=== PATIENT | female | born 1970 | race Caucasian/White ===

== ENCOUNTER 2020-05-19 16:14 | Outpatient (REF) | payer MEDICARE, MEDICAID, SELFPAY ==
[2020-05-19 16:44] LABS: MANUAL DIFF FLAG NO
[2020-05-19 16:55] LABS: Basophils Percent Auto 0.6 % (0-2); Eosinophils Absolute Auto 0.2 X10*3/uL (0.0-0.4); Eosinophils Percent Auto 2.5 % (0-4); Hematocrit 27.2 % (37-47); Imm Gran Abs Auto 0.03 X10*3/uL (0.00-0.03); Imm Gran Pct Auto 0.4 % (0.0-0.4); Lymphocytes Absolute Auto 2.4 X10*3/uL (1.2-4.9); Lymphocytes Percent Auto 34.8 % (20-40); Mean Corpuscular HGB Conc 33.1 g/dl (31.0-35.0); Mean Corpuscular Hemoglobin 33.8 pg (27.0-33.0); Mean Corpuscular Volume 102.3 fL (80-98); Mean Platelet Volume 10.1 fL (9.4-12.3); Monocytes Absolute Auto 0.3 X10*3/uL (0.1-1.2); Monocytes Percent Auto 3.8 % (2-11); Neutrophils Percent Auto 57.9 % (45-73); Platelet Count 223 X10*3/uL (160-400); Red Blood Count 2.66 X10*6/uL (4.20-5.50); Red Cell Distribution Width 13.2 % (11.0-16.0); White Blood Count 6.9 X10*3/uL (4.8-10.8)
[2020-05-19 17:30] LABS: Alanine Aminotransferase 18 U/L (0-31); Albumin Level 3.5 g/dL (3.5-5.0); Alkaline Phosphatase 77 U/L (39-117); Aspartate Amino Transferase 28 U/L (5-31); Bilirubin Total 0.2 mg/dL (0.0-1.0); Blood Urea Nitrogen 12 mg/dL (9-16); Calcium 8.8 mg/dL (8.4-10.2); Cholesterol 200 mg/dL; Estimated Glomerular Filt Rate 30; Glucose Random 79 mg/dL (60-115); HDL Cholesterol 57 mg/dL; LDL Cholesterol Calculated 76 mg/dl; Total Protein 5.8 g/dL (6.5-8.0); Triglycerides 336 mg/dL
[2020-05-19 18:46] LABS: Anion Gap 12 (12-20); Carbon Dioxide 40 mmol/L (22-29); Chloride 94 mmol/L (96-108); Potassium 3.4 mmol/l (3.3-5.1); Sodium 143 mmol/L (135-145)
[2020-05-19 19:36] LABS: Reflex LDLD? No
[2020-05-19 20:42] LABS: Thyroid Stimulating Hormone > 100.00 uIU/mL (0.32-4.0)
== END 2020-05-19 16:15 | disposition home or self-care (01) ==
LOC: HO.LAB 16:14
PROVIDERS: PCP Internal Medicine; Visit Provider Internal Medicine
DX: Z00.00 Encounter for general adult medical examination without abnormal findings (principal); E03.9 Hypothyroidism, unspecified; F32.9 Major depressive disorder, single episode, unspecified
CPT/HCPCS: 36415; 80053; 80061; 84443; 85025

== ENCOUNTER 2020-05-26 13:38 | Inpatient (IN) | payer MEDICARE, MEDICAID, SELFPAY ==
[2020-05-26] VITALS (7 sets, daily range): BP systolic 102–140; BP diastolic 60–74; PULSE 75–98; RESP 16–19; TEMP 36.4–36.9; O2SAT 98–100; BMI 18.8
--- NOTE | 2020-05-26 14:36 | ED_ITS ---
HPI - Recheck/Abnormal Lab/Rx General Chief Complaint: General Medical Stated Complaint: abnormal labs Time Seen by Provider: 05/26/20 14:33 Source: patient and old records reviewed Mode of arrival: ambulatory Limitations: no limitations History of Present Illness HPI narrative: 49 yo female s/p thyroidectomy for thyroid cancer was on synthroid but then took herself off and did internet raw thyroid - she resumed her 125mcg of synthroid on Friday at this time she was referred to the ED to come for abnormal thyroid labs and renal failure she has been c/o low back pain as well. MD complaint: abnormal lab Initial visit (ago): week(s) (05/19) Related Data Home Medications Medication Instructions Recorded Confirmed clonazepam 1 mg PO TID 05/26/20 05/26/20 levothyroxine [Synthroid] 125 mcg PO DAILY 05/26/20 05/26/20 quetiapine 200 mg PO BEDTIME 05/26/20 05/26/20 zolpidem 5 mg PO BEDTIME 05/26/20 05/26/20 Allergies Allergy/AdvReac Type Severity Reaction Status Date / Time No Known Allergies Allergy Unknown UNKNOWN Verified 05/26/20 14:40 [NO KNOWN ALLERGIES] Review of Systems Review of Systems: Constitutional : No Weight loss, No Fever, No Chills,pos fatigue and pos myalgias ENT/Mouth : No Hearing loss, No Ear Pain, No Nasal Congestion, No Sinus Pain, No Hoarseness, No sore throat, No Rhinorrhea, No Swallowing Difficulty Cardiovascular : No Chest Pain, No SOB, positive edema Respiratory : No Cough, No Dyspnea Gastrointestinal : No Nausea, No Vomiting, No Diarrhea, No abdominal Pain, No Hematochezia, No Melena Genitourinary : No Dysuria, No Urinary Frequency, No Hematuria, No Urinary Incontinence, Musculoskeletal : positive back pain Skin : No Skin Lesions, No rash Neuro : No Weakness, No Numbness, No Paresthesias, no loss of bowel or bladder incontinence, no saddle anesthesia PMFSH Past Medical History Attestation statement: The following information was validated with the patient. Medical History (Updated 05/26/20 @ 16:31 by Caterina Garcia DO) Anxiety Cholecystectomy planned Drug abuse Hypothyroidism Thyroid cancer Surgical History (Updated 05/26/20 @ 14:55 by Caterina Garcia DO) H/O thyroidectomy History of laparotomy Social History Social History (Updated 05/26/20 @ 14:55 by Caterina Garcia DO) Smoking Status: Current every day smoker Use of substances other than those prescribed or required for medical reasons: No Advance Directives: Yes Advance Directives Information Provided: Yes Advance Directives on File: No Physical Exam Vital Signs: Vital Signs: Last Vital Signs Temp 98.5 F 05/26/20 16:16 Pulse 77 05/26/20 16:16 Resp 16 05/26/20 16:16 BP 102/72 05/26/20 16:16 Pulse Ox 98 05/26/20 16:16 Body Mass Index 18.8 Appearance: Alert. Oriented X3. No acute distress. Eyes: Pupils equal, round and reactive to light. ENT: Pharynx normal. Neck: Normal inspection. Neck supple. CVS: Normal heart rate and rhythm. Pulses normal. Respiratory: No respiratory distress. Breath sounds normal. Abdomen: Soft and nontender. Back: bilateral lower back pain Skin: Skin warm and dry. Normal skin color. Very dry and flaking skin Extremities: Nonpitting bilateral mild lower extremity edema. No calf ttp Neuro: Oriented X 3. No motor deficit. No sensory deficit. MDM - Recheck/Abnormal Lab/Rx MDM Narrative Medical decision making narrative: 49 yo female with 1+ month of not feeling well - here with HR in 80s, low back pain for 1 month with no b/b incontinence, no saddle anesthesia, also TSH > 100 but back on synthroid 125mcg, no signs of myxedema coma, she is more concerned about receiving pain medications it seems than about her possible renal and thyroid dysfunction, will repeat labs, CT scan for renal colic, UA, dispo per results and findings Lab Data Result diagrams: 05/26/20 15:11 05/26/20 15:12 Labs: Lab Results 05/26/20 05/26/20 05/26/20 Range/Units 15:11 15:12 15:12 WBC 7.1 (4.8-10.8) X10*3/uL RBC 3.31 L D (4.20-5.50) X10*6/uL Hgb 11.1 L D (12.0-16.0) g/dl Hct 34.1 L D (37-47) % MCV 103.0 H (80-98) fL MCH 33.5 H (27.0-33.0) pg MCHC 32.6 (31.0-35.0) g/dl RDW 13.1 (11.0-16.0) % Plt Count 275 (160-400) X10*3/uL MPV 9.7 (9.4-12.3) fL Immature Gran % (Auto) 0.4 (0.0-0.4) % Neut % (Auto) 61.5 (45-73) % Lymph % (Auto) 32.4 (20-40) % [place] % (Auto) 3.7 (2-11) % Eos % (Auto) 1.3 (0-4) % Baso % (Auto) 0.7 (0-2) % Lymph # (Auto) 2.3 (1.2-4.9) X10*3/uL [place] # (Auto) 0.3 (0.1-1.2) X10*3/uL Eos # (Auto) 0.1 (0.0-0.4) X10*3/uL Baso # (Auto) 0.1 (0.0-0.2) X10*3/uL Abs Immat Gran (auto) 0.03 (0.00-0.03) X10*3/uL Absolute Neuts (auto) 4.3 (2.0-8.3) X10*3/uL Absolute Nucleated RBC 0.000 (0.0-0.012) X10*3/uL Nucleated RBC % (auto) 0.0 (0.0-0.2) /100WBC APTT (24.1-38.0) SEC Sodium 142 (135-145) mmol/L Potassium 4.1 D (3.3-5.1) mmol/l Chloride 102 (96-108) mmol/L Carbon Dioxide 28 (22-29) mmol/L Anion Gap 16 (12-20) BUN 9 (9-16) mg/dL Creatinine 1.79 H (0.5-1.4) mg/dL Estim Creat Clear Calc 30.3 Estimated GFR 30 Random Glucose 75 (60-115) mg/dL Calcium 8.6 (8.4-10.2) mg/dL Magnesium 1.6 (1.6-2.6) mg/dL Total Bilirubin 0.4 (0.0-1.0) mg/dL Direct Bilirubin 0.2 (0.0-0.5) mg/dL AST 31 (5-31) U/L ALT 16 (0-31) U/L Alkaline Phosphatase 111 D (39-117) U/L B-Natriuretic Peptide 94 (<100) pg/mL Total Protein 7.1 D (6.5-8.0) g/dL Albumin 4.1 (3.5-5.0) g/dL Lipase 16 (8-78) U/L TSH (0.32-4.0) uIU/mL Free T4 0.60 L (0.71-1.85) ng/dL Urine Color Urine Appearance Urine pH (5.0-8.0) Ur Specific [place] (1.005-1.025) Urine Protein (NEG-TRACE) MG/DL Urine Glucose (UA) (NEG) MG/DL Urine Ketones (NEG) MG/DL Urine Blood (NEG) Urine Nitrite (NEG) Ur Leukocyte Esterase (NEG) Urine RBC (0) /HPF Urine WBC (0-4) /HPF Ur Squamous Epith Cells /LPF Urine Bacteria /LPF 05/26/20 05/26/20 05/26/20 Range/Units 15:12 15:12 15:12 WBC (4.8-10.8) X10*3/uL RBC (4.20-5.50) X10*6/uL Hgb (12.0-16.0) g/dl Hct (37-47) % MCV (80-98) fL MCH (27.0-33.0) pg MCHC (31.0-35.0) g/dl RDW (11.0-16.0) % Plt Count (160-400) X10*3/uL MPV (9.4-12.3) fL Immature Gran % (Auto) (0.0-0.4) % Neut % (Auto) (45-73) % Lymph % (Auto) (20-40) % [place] % (Auto) (2-11) % Eos % (Auto) (0-4) % Baso % (Auto) (0-2) % Lymph # (Auto) (1.2-4.9) X10*3/uL [place] # (Auto) (0.1-1.2) X10*3/uL Eos # (Auto) (0.0-0.4) X10*3/uL Baso # (Auto) (0.0-0.2) X10*3/uL Abs Immat Gran (auto) (0.00-0.03) X10*3/uL Absolute Neuts (auto) (2.0-8.3) X10*3/uL Absolute Nucleated RBC (0.0-0.012) X10*3/uL Nucleated RBC % (auto) (0.0-0.2) /100WBC APTT 44.3 H (24.1-38.0) SEC Sodium (135-145) mmol/L Potassium (3.3-5.1) mmol/l Chloride (96-108) mmol/L Carbon Dioxide (22-29) mmol/L Anion Gap (12-20) BUN (9-16) mg/dL Creatinine (0.5-1.4) mg/dL Estim Creat Clear Calc Estimated GFR Random Glucose (60-115) mg/dL Calcium (8.4-10.2) mg/dL Magnesium (1.6-2.6) mg/dL Total Bilirubin (0.0-1.0) mg/dL Direct Bilirubin (0.0-0.5) mg/dL AST (5-31) U/L ALT (0-31) U/L Alkaline Phosphatase (39-117) U/L B-Natriuretic Peptide (<100) pg/mL Total Protein (6.5-8.0) g/dL Albumin (3.5-5.0) g/dL Lipase (8-78) U/L TSH > 100.00 H (0.32-4.0) uIU/mL Free T4 (0.71-1.85) ng/dL Urine Color YELLOW Urine Appearance HAZY Urine pH 7.5 (5.0-8.0) Ur Specific [place] 1.010 (1.005-1.025) Urine Protein NEG (NEG-TRACE) MG/DL Urine Glucose (UA) NEG (NEG) MG/DL Urine Ketones NEG (NEG) MG/DL Urine Blood TRACE (NEG) Urine Nitrite NEG (NEG) Ur Leukocyte Esterase NEG (NEG) Urine RBC 1-4 (0) /HPF Urine WBC 1-4 (0-4) /HPF Ur Squamous Epith Cells 2+ /LPF Urine Bacteria 1+ /LPF ECG Data Attestation: I personally reviewed and interpreted this ECG as follows: ECG interpretation date: 05/26/20 ECG interpretation time: 16:29 Interpretation: Rate: 75 Rhythm: NSR [place]: normal Normal P waves. Normal ALANNA. decreased QRS complex. ST T wave : normal qTC: normal prior studies: no acute ischemia The study has been interpreted contemporaneously by me. . Discharge Plan Discharge Clinical Impression: LAURYN (acute kidney injury), Hypothyroid, Non-compliance, Back pain Patient Disposition: Admitted As Inpatient Prescriptions: No Action quetiapine 200 mg Tablet 200 mg PO BEDTIME RF: 0 clonazepam 1 mg Tablet 1 mg PO TID RF: 0 levothyroxine [Synthroid] 125 mcg Tablet 125 mcg PO DAILY RF: 0 zolpidem 5 mg Tablet 5 mg PO BEDTIME RF: 0
--- NOTE | 2020-05-26 14:48 | ECG_ITS ---
Test Reason : BACK PAIN Blood Pressure : / mmHG Vent. Rate : 075 BPM Atrial Rate : 075 BPM P-R Int : 178 ms QRS Dur : 114 ms QT Int : 404 ms P-R-T Axes : 075 086 078 degrees QTc Int : 451 ms Normal sinus rhythm Low voltage QRS RSR' or QR pattern in V1 suggests right ventricular conduction delay Borderline ECG When compared with ECG of 03-SEP-2019 05:10, No significant change was found Referred By: Caterina Garcia Electronically Signed By:RAMIRO FREIRE MD
--- NOTE | 2020-05-26 14:48 | CT_ITS ---
EXAMINATION: CT ABDOMEN AND PELVIS WITHOUT CONTRAST CLINICAL INFORMATION: Back pain. Renal failure. Anemia. COMPARISON: 12/09/2013 TECHNIQUE: Multidetector volumetric imaging was performed from the superior aspect of the liver through the pubic symphysis. Sagittal and coronal reformatted images were obtained on the technologist's workstation. This CT examination was performed using dose optimization techniques as appropriate, variously including the following: *Automated exposure control *Adjustment of mA and/or kV according to patient size (this includes techniques or standardized protocols for targeted exams where dose is matched to indication/reason for exam; i.e. extremities or head) *Use of iterative reconstruction technique DLP: 334 mGy-cm FINDINGS: LUNG BASES: Small pericardial effusion. Mild centrilobular emphysema. Pleural thickening at the left base. LIVER, GALLBLADDER, AND BILIARY TREE: The liver is normal in size, shape, and attenuation. No focal hepatic lesion or biliary ductal dilatation is present. Cholecystectomy. PANCREAS: Unremarkable. SPLEEN: Unremarkable. ADRENAL GLANDS: Unremarkable. KIDNEYS AND URETERS: The kidneys are normal in size, shape, and attenuation. No hydronephrosis or hydroureter. There is a right upper pole calculus which measures 0.5 cm, 7 cm from the posterior axillary line. 0.2 cm right lower pole calculus noted. No additional calculi are seen. BLADDER: Unremarkable. GASTROINTESTINAL TRACT: The stomach is unremarkable. Normal caliber small bowel. There is no obstruction. The colon is diffusely fluid-filled, with stool at the rectum. Partial colectomy with right upper quadrant enterocolic anastomosis. No free air or free fluid. ABDOMINAL WALL: No significant hernia is appreciated. LYMPH NODES: Normal. VASCULAR: Unremarkable. PELVIC VISCERA: The uterus and adnexa are unremarkable. OSSEOUS STRUCTURES: No acute or suspicious osseous abnormality. CT/CT abdomen pelvis wo con IMPRESSION: Right upper pole nonobstructing renal calculus. Tiny right lower pole calculus as well. No hydronephrosis. Fluid and prominent stool throughout much of the colon. Partial right colectomy with right upper quadrant enterocolic anastomosis.
[2020-05-26] MEDS: Lidocaine 4 % Patch ADH..PATCH 1 PATCH TRANSDERMA (15:19)
[2020-05-26] MEDS: Acetaminophen 325 MG TABLET 650 MG PO (15:19)
[2020-05-26] MEDS: diazePAM 5 MG TABLET PO (15:20)
[2020-05-26] MEDS: ondansetron HCL 4 MG/2 ML VIAL IVPUSH (15:20)
[2020-05-26 15:21] LABS: Basophils Absolute Auto 0.1 X10*3/uL (0.0-0.2); Basophils Percent Auto 0.7 % (0-2); Eosinophils Absolute Auto 0.1 X10*3/uL (0.0-0.4); Eosinophils Percent Auto 1.3 % (0-4); Hematocrit 34.1 % (37-47); Hemoglobin 11.1 g/dl (12.0-16.0); Imm Gran Abs Auto 0.03 X10*3/uL (0.00-0.03); Imm Gran Pct Auto 0.4 % (0.0-0.4); Lymphocytes Absolute Auto 2.3 X10*3/uL (1.2-4.9); Lymphocytes Percent Auto 32.4 % (20-40); MANUAL DIFF FLAG NO; Mean Corpuscular HGB Conc 32.6 g/dl (31.0-35.0); Mean Corpuscular Hemoglobin 33.5 pg (27.0-33.0); Mean Platelet Volume 9.7 fL (9.4-12.3); Monocytes Absolute Auto 0.3 X10*3/uL (0.1-1.2); Monocytes Percent Auto 3.7 % (2-11); Neutrophils Absolute Auto 4.3 X10*3/uL (2.0-8.3); Neutrophils Percent Auto 61.5 % (45-73); Platelet Count 275 X10*3/uL (160-400); Red Blood Count 3.31 X10*6/uL (4.20-5.50); Red Cell Distribution Width 13.1 % (11.0-16.0); White Blood Count 7.1 X10*3/uL (4.8-10.8)
[2020-05-26 15:29] LABS: Partial Thromboplastin Time 44.3 SEC (24.1-38.0)
[2020-05-26 15:34] LABS: Glucose Urine UA NEG (NEG); Leukocyte Esterase Urine NEG (NEG); Nitrite Urine NEG (NEG); PH 7.5 (5.0-8.0); Urine Blood TRACE (NEG); Urine Ketones NEG (NEG); Urine Protein NEG (NEG-TRACE)
[2020-05-26 15:38] LABS: Appearance Urine HAZY; Color Urine YELLOW
[2020-05-26 15:45] LABS: Bacteria Urine 1+ /LPF; Squamous Epithelial Cell Urine 2+ /LPF
[2020-05-26 15:52] LABS: Alanine Aminotransferase 16 U/L (0-31); Albumin Level 4.1 g/dL (3.5-5.0); Alkaline Phosphatase 111 U/L (39-117); Anion Gap 16 (12-20); Aspartate Amino Transferase 31 U/L (5-31); Bilirubin Direct 0.2 mg/dL (0.0-0.5); Bilirubin Total 0.4 mg/dL (0.0-1.0); Blood Urea Nitrogen 9 mg/dL (9-16); Calcium 8.6 mg/dL (8.4-10.2); Carbon Dioxide 28 mmol/L (22-29); Chloride 102 mmol/L (96-108); Creatinine Clr Calc Pharmacy 30.3; Estimated Glomerular Filt Rate 30; Glucose Random 75 mg/dL (60-115); Lipase 16 U/L (8-78); Magnesium 1.6 mg/dL (1.6-2.6); Potassium 4.1 mmol/l (3.3-5.1); Sodium 142 mmol/L (135-145); Total Protein 7.1 g/dL (6.5-8.0)
[2020-05-26 15:54] LABS: B Type Natriuretic Peptide 94 pg/mL (<100)
--- NOTE | 2020-05-26 16:02 | PC.NURSE ---
pt returned from ct scan
[2020-05-26 16:15] LABS: Thyroid Stimulating Hormone > 100.00 uIU/mL (0.32-4.0)
[2020-05-26] MEDS: 0.9 % Sodium Chloride 1,000 ML 999 ML IVCONT (16:41)
--- NOTE | 2020-05-26 16:50 | P.HPHOSP_ITS ---
History of Present Illness Date of Service: 05/26/20 Chief Complaint: Multiple complaint--abdominal pain, dry skin 49 year female with history of thyroid cancer s/p total thyroidectomy 9 years ago and on replacement levothyroxine which stpped taking about six [address] of some natural supplement. She has not been feeling for weeks with symptoms ranging from feeling tired, weak and had notted her skin to be very dry and has been having generalized pain particular in her lower back and has been taking alot of Motrin at home for this. She recently was started back on synthroid about 5 days ago. She had lab work done today which showed TSH > 100 and Free T4 of 0.6. She also says that she had been recently treated for UTI and denies urinary symptoms. CT of abdomen and pelvis show no acute process. Review of Systems Review of Systems: Gen: no fever Resp: no sob, no cough CV: no chest, no [place], no leg edema GI: No n/v, no abd pain Neuro: No confusion [place]: back pain Psych: normal affect Skin: dry no itchyness Endo: no polyurrea or polydipsia Yes all other systems are reviewed and are negative [facility] Medical History (Updated 05/26/20 @ 17:08 by Griffin Jackson MD) Anxiety Cholecystectomy planned Drug abuse History of small bowel obstruction Hypothyroidism Thyroid cancer Functional capacity: independent ambulation Family history: reviewed and not pertinent Surgical History (Updated 05/26/20 @ 17:08 by Griffin Jackson MD) H/O resection of small bowel H/O thyroidectomy History of laparotomy Social History Smoking Status: Current every day smoker Use of substances other than those prescribed or required for medical reasons: No Advance Directives: Yes Advance Directives Information Provided: Yes Advance Directives on File: No Meds Allergies Allergy/AdvReac Type Severity Reaction Status Date / Time No Known Allergies Allergy Unknown UNKNOWN Verified 05/26/20 14:40 [NO KNOWN ALLERGIES] Home Medications Medication Instructions Recorded Confirmed Type clonazepam 1 mg PO TID 05/26/20 05/26/20 History levothyroxine [Synthroid] 125 mcg PO DAILY 05/26/20 05/26/20 History quetiapine 200 mg PO BEDTIME 05/26/20 05/26/20 History zolpidem 5 mg PO BEDTIME 05/26/20 05/26/20 History Physical Exam Vital Signs and Narrative: Vital Signs: Last Vital Signs Temp 98.5 F 05/26/20 16:16 Pulse 77 05/26/20 16:16 Resp 16 05/26/20 16:16 BP 102/72 05/26/20 16:16 Pulse Ox 98 05/26/20 16:16 Body Mass Index 18.8 Appearance: Alert. Oriented X3. No acute distress. Eyes: Pupils equal, round and reactive to light. ENT: Pharynx normal. Neck: Normal inspection. Neck supple. CVS: Normal heart rate and rhythm. Pulses normal. Respiratory: No respiratory distress. Breath sounds normal. Abdomen: Soft and nontender. Back: bilateral lower back pain Skin: Skin warm and dry. Normal skin color. Very dry and flaking skin, nail clubbing Extremities: Nonpitting bilateral mild lower extremity edema. No calf ttp Neuro: Oriented X 3. No motor deficit. No sensory deficit. Results Labs CBC and Chem 7: 05/26/20 15:11 05/26/20 15:12 Labs: TSH > 100, Free T4 0.6, UA is normal Imaging Radiologist's Impressions: Impressions Abdomen/Pelvis CT 05/26/20 14:48 IMPRESSION: Right upper pole nonobstructing renal calculus. Tiny right lower pole calculus as well. No hydronephrosis. Fluid and prominent stool throughout much of the colon. Partial right colectomy with right upper quadrant enterocolic anastomosis. Assessment and Plan (1) LAURYN (acute kidney injury): Status: Acute (2) Hypothyroid: Qualifiers: Hypothyroidism type: unspecified Qualified Code(s): E03.9 - Hypothyroidism, unspecified Status: Acute (3) Back pain: Qualifiers: Back pain laterality: bilateral Back pain location: low back pain Chronicity: acute Sciatica presence: without sciatica Qualified Code(s): M54.5 - Low back pain Status: Acute 49 year female with history of thyroidectomy and now hypothyroidism and non compliant here with back pain, mild LAURYN 1. LAURYN--mild, likely from dehydration and possibly taking too many Motrin -Hydrate and repeat Labs and if not improving renal consult, avoid NSAID 2. Back pain--no neuro symptoms, possibly related to constipation. Pain med, treat constpation 3. Hypothyroidism--d/t non-compliance. No myxedema symptoms. Continue thyroid replacement with TSH 4. Consitipation d/t hypothyroidism--Bowel regimen 5. history of Opioid contract failure--cautious with pain meds. DVT prophylaxis with
--- NOTE | 2020-05-26 17:00 | PC.NURSE ---
called up to [facility] to give report, awaiting call back
[2020-05-26 17:50] LABS: COVID-19 Test Negative (Negative); IDNOW Serial# 9DD0AD1C
[2020-05-26] MEDS: Morphine Sulfate 2 MG/ML CARTRIDGE IVPUSH ×2 (18:15→22:21)
--- NOTE | 2020-05-26 19:00 | PC.NURSE ---
PT C/O ONGOING LOWER BACK PAIN. MEDICATED WITH PRN MEDICATION FROM TRANSFER ORDERS. STILL WIATING FOR CALL TO GIVE REPORT. DAUGHTER UPDATED WITH PATIENTS CONSENT.
[2020-05-26] MEDS: QUEtiapine Fumarate 200 MG TABLET PO (21:30)
[2020-05-26] MEDS: Zolpidem Tartrate 5 MG TABLET PO (21:30)
[2020-05-26] MEDS: clonazePAM 1 MG TABLET PO (21:30)
[2020-05-26] MEDS: Enoxaparin Sodium 40 MG/0.4 ML SYRINGE SUBCUT (21:30)
[2020-05-26] MEDS: Dextrose 5 % and 0.45 % NaCl 1,000 ML 100 ML IVCONT (22:21)
[2020-05-27 04:08] VITALS: BP 120/68; BP 96/50; PULSE 85; RESP 19; TEMP 36.7; O2SAT 97
[2020-05-27] MEDS: Morphine Sulfate 2 MG/ML CARTRIDGE IVPUSH ×4 (04:27→18:10)
[2020-05-27 06:07] VITALS: BMI 23.1
[2020-05-27] MEDS: Levothyroxine Sodium 125 MCG TABLET PO (07:47)
[2020-05-27] MEDS: clonazePAM 1 MG TABLET PO ×3 (07:47→21:31)
[2020-05-27] MEDS: Dextrose 5 % and 0.45 % NaCl 1,000 ML 100 ML IVCONT ×2 (07:49→17:04)
[2020-05-27 07:50] LABS: MANUAL DIFF FLAG NO
[2020-05-27 07:56] LABS: Basophils Absolute Auto 0.1 X10*3/uL (0.0-0.2); Eosinophils Absolute Auto 0.2 X10*3/uL (0.0-0.4); Eosinophils Percent Auto 3.4 % (0-4); Hematocrit 30.6 % (37-47); Hemoglobin 9.9 g/dl (12.0-16.0); Imm Gran Abs Auto 0.03 X10*3/uL (0.00-0.03); Imm Gran Pct Auto 0.6 % (0.0-0.4); Lymphocytes Percent Auto 37.9 % (20-40); Mean Corpuscular HGB Conc 32.4 g/dl (31.0-35.0); Mean Corpuscular Hemoglobin 33.3 pg (27.0-33.0); Mean Platelet Volume 10.4 fL (9.4-12.3); Monocytes Absolute Auto 0.2 X10*3/uL (0.1-1.2); Monocytes Percent Auto 3.1 % (2-11); Neutrophils Absolute Auto 2.8 X10*3/uL (2.0-8.3); Platelet Count 265 X10*3/uL (160-400); Red Blood Count 2.97 X10*6/uL (4.20-5.50); Red Cell Distribution Width 13.2 % (11.0-16.0); White Blood Count 5.2 X10*3/uL (4.8-10.8)
[2020-05-27 08:00] VITALS: BP 108/47; PULSE 92; RESP 18; TEMP 36.2; O2SAT 99
[2020-05-27 08:20] LABS: Anion Gap 12 (12-20); Blood Urea Nitrogen 9 mg/dL (9-16); Calcium 7.4 mg/dL (8.4-10.2); Carbon Dioxide 26 mmol/L (22-29); Chloride 106 mmol/L (96-108); Creatinine Clr Calc Pharmacy 39.9; Estimated Glomerular Filt Rate 37; Glucose Random 96 mg/dL (60-115); Potassium 4.1 mmol/l (3.3-5.1); Sodium 140 mmol/L (135-145)
--- NOTE | 2020-05-27 09:54 | HO.PM.IMPN ---
Subjective Subjective Date of Service: 05/27/20 Interval History: Seen in f/u LAURYN , renal function is better but not within baselin ROS: Gen: no fever Resp: no sob, no cough CV: no chest, no [place], no leg edema GI: No n/v, no abd pain Neuro: No confusion [place] back pain--old Physical Exam Vital Signs: Vital Signs: Last Vital Signs Temp 97.2 F 05/27/20 08:00 Pulse 92 05/27/20 08:00 Resp 18 05/27/20 08:00 BP 108/47 L 05/27/20 08:00 Pulse Ox 99 05/27/20 08:00 Body Mass Index 23.1 Appearance: Alert. Oriented X3. No acute distress. Eyes: Pupils equal, round and reactive to light. ENT: Pharynx normal. Neck: Normal inspection. Neck supple. CVS: Normal heart rate and rhythm. Pulses normal. Respiratory: No respiratory distress. Breath sounds normal. Abdomen: Soft and nontender. Back: bilateral lower back pain Skin: Skin warm and dry. Normal skin color. Very dry and flaking skin, nail clubbing Extremities: Nonpitting bilateral mild lower extremity edema. No calf ttp Neuro: Oriented X 3. No motor deficit. No sensory deficit. Objective Data Current Medications Generic Name Dose Route Start Last Admin Trade Name Freq PRN Reason Stop Dose Admin Clonazepam 1 mg 05/26/20 21:00 05/27/20 07:47 Clonazepam 1 Mg Tablet PO 1 mg TID FISH Administration Enoxaparin Sodium 40 mg 05/26/20 22:00 05/26/20 21:30 Enoxaparin Sodium 40 Mg/0.4 Ml Syringe SUBCUT 40 mg Q24H FISH Administration Dextrose/Sodium Chloride 1,000 mls @ 100 mls/hr 05/26/20 20:20 05/27/20 07:49 D51/2ns IVCONT 100 mls/hr .Q10H FISH Administration Levothyroxine Sodium 125 mcg 05/27/20 09:00 05/27/20 07:47 Levothyroxine Sodium 125 Mcg Tablet PO 125 mcg DAILY FISH Administration Morphine Sulfate 2 mg 05/26/20 16:45 05/27/20 09:11 Morphine Sulfate 2 Mg/Ml Cartridge IVPUSH 2 mg Q4H PRN Administration Pain, Severe (Pain Scale 7-10) Pharmacy Consult 1 each 05/26/20 15:55 Consult Rx Perform Med Rec MISCELLANE ONCE PRN Consult order Quetiapine Fumarate 200 mg 05/26/20 21:00 05/26/20 21:30 Quetiapine Fumarate 200 Mg Tablet PO 200 mg BEDTIME FISH Administration Sodium Chloride 3 ml 05/27/20 00:00 05/27/20 07:48 0.9 % Sodium Chloride Flush 3 Ml Syringe IVFLUSH Not Given QSHIFT FISH Zolpidem Tartrate 5 mg 05/26/20 21:00 05/26/20 21:30 Zolpidem Tartrate 5 Mg Tablet PO 5 mg BEDTIME FISH Administration Labs CBC & Chem 7: 05/27/20 07:08 05/27/20 07:08 Assessment and Plan (1) LAURYN (acute kidney injury): Status: Acute (2) Hypothyroid: Status: Acute (3) Back pain: Status: Acute Assessment and Plan: 49 year female with history of thyroidectomy and now hypothyroidism and non compliant here with back pain, mild LAURYN 1. LAURYN--slight improvment overnight, w -Hydrate and repeat Labs tomorrow, renal consultt, avoid NSAID 2. Back pain--no neuro symptoms, possibly related to constipation. Pain med, treat constpation 3. Hypothyroidism--d/t non-compliance. No myxedema symptoms. Continue thyroid replacement with TSH 4. Consitipation d/t hypothyroidism--Bowel regimen 5. history of Opioid contract failure--cautious with pain meds. DVT prophylaxis with
[2020-05-27 11:43] VITALS: BP 105/62; PULSE 84; RESP 18; TEMP 36.1; O2SAT 100
--- NOTE | 2020-05-27 13:45 | P.CONNP_ITS ---
History of Present Illness Reason for Consult Consult date: 05/27/20 Reason for consult: Acute Kidney Injury Chief Complaint Chief complaint: abnormal labs History of Present Illness Narrative: Ms. Apple Craft is a 49-year-old female with past medical history of thyroid cancer s/p total thyroidectomy who stopped taking her Levothyroxin several weeks ago. She began having significant symptoms of hypothyroidism correclating to her blood work showing TSH >100 and T4 0.6. Otherwise she was found to have LAURYN with a Cr of 1.79ml/dL. The patient tells me that for atleast 2 weeks she was taking 800mg of motrin q3- 6 hours. She didnt realize it was nephrotoxic. Her U/A was bland. Her Cr peaked at 1.79. Cr is improving with IVF. She denies urinary symptoms. Review of Systems Constitutional: Reports anorexia, Denies chills, Reports daytime sleepiness, Denies difficulty sleeping, Denies excessive sweating and Reports fatigue Eyes: Denies exophthalmos Reports Normal hearing present Cardiovascular: Denies chest pain and Denies dyspnea Respiratory: Denies dyspnea Gastrointestinal: Reports constipation Genitourinary: Denies hematuria and Denies urinary urgency Musculoskeletal: Denies arthralgias Reports Normal hearing present and Denies behavioral changes Psychiatric: Denies behavioral changes Endocrine: Denies excessive sweating and Reports fatigue Hematologic/Lymphatic: Denies easy bruising PMFSH Past Medical History Medical History (Updated 05/27/20 @ 14:06 by Shadi Oneill MD) Anxiety Cholecystectomy planned Drug abuse History of small bowel obstruction Hypothyroidism Thyroid cancer Functional capacity: independent ambulation Family History Family history: reviewed and not pertinent Surgical History Surgical History (Updated 05/26/20 @ 17:08 by Griffin Jackson MD) H/O resection of small bowel H/O thyroidectomy History of laparotomy Social History Social History Do you presently have visiting nurse or other home services: No Smoking Status: Current every day smoker Tobacco Type: Cigarette Packs Per Day: 0.5 Cigarettes Per Day: 10.0 Second Hand Smoke Exposure: Yes Use of substances other than those prescribed or required for medical reasons: Unknown Currently Displaying Signs/Symptoms of Drug Intoxication Withdrawal: No Have you been hit, kicked, punched, or otherwise hurt by someone within the past year? If so, by whom?: No Do you feel safe in your current relationship?: Yes Is there a partner from a previous relationship who is making you feel unsafe now?: No Are you made to feel afraid or neglected: No Advance Directives: No Advance Directives Information Provided: Yes Advance Directives on File: No Do you have thoughts of harming others: None Do you have a plan to hurt others: No Plan Recently lost weight without trying: No Meds Allergies Allergy/AdvReac Type Severity Reaction Status Date / Time No Known Allergies Allergy Unknown UNKNOWN Verified 05/26/20 14:40 [NO KNOWN ALLERGIES] Home Medications Medication Instructions Recorded Confirmed Type clonazepam 1 mg PO TID 05/26/20 05/26/20 History levothyroxine [Synthroid] 125 mcg PO DAILY 05/26/20 05/26/20 History quetiapine 200 mg PO BEDTIME 05/26/20 05/26/20 History zolpidem 5 mg PO BEDTIME 05/26/20 05/26/20 History Physical Exam Vital Signs: Last Vital Signs Temp 96.9 F 05/27/20 11:43 Pulse 84 05/27/20 11:43 Resp 18 05/27/20 11:43 BP 105/62 05/27/20 11:43 Pulse Ox 100 05/27/20 11:43 Body Mass Index 23.1 Const Other: poor dentition General: cooperative Resp Other: CTAB Cardio Other: RRR no murmurs. GI Other: NT ND Other: No suprapubic tenderness or fullness. Neuro Cranial nerves: Yes Normal hearing present Extrem Other: No edema. Results Lab Results Result Diagrams: 05/27/20 07:08 05/27/20 07:08 Lab results: Chemistry 05/26/20 05/27/20 15:12 07:08 Sodium 142 140 Potassium 4.1 D 4.1 Carbon Dioxide 28 26 BUN 9 9 Creatinine 1.79 H 1.49 H Calcium 8.6 7.4 L D Hematology 05/26/20 05/27/20 15:11 07:08 WBC 7.1 5.2 Hgb 11.1 L D 9.9 L Plt Count 275 265 Urinalysis 05/26/20 15:12 Urine Color YELLOW Urine Appearance HAZY Urine pH 7.5 Ur Specific [place] 1.010 Urine Protein NEG Urine Glucose (UA) NEG Urine Ketones NEG Urine Blood TRACE Urine Nitrite NEG Ur Leukocyte Esterase NEG Urine RBC 1-4 Urine WBC 1-4 Ur Squamous Epith Cells 2+ Assessment and Plan (1) LAURYN (acute kidney injury): Problem details: Acute kidney injury likely from a pre-renal azotemia and renal hypoperfusion. NSAIDs block the prostaglandin effect on afferent arterial leading to afferent constriction and hypoperfusion of the glomerulus. This ontop of reduced PO intake and hypovolemia caused a significant pre-renal injury. Improving with Volume support. Status: Acute - May be best to switch to an isotonic solution at this point with LR at 125cc/hr. Perhaps avoid D5 / 0.45 for now. - Encourage PO - Treating hypothyroidism will help with her overall condition and state. - I will set up f/u with Renal outpatient. Procedures Abscess I/D Date of Service: 05/27/20
--- NOTE | 2020-05-27 14:39 | MHC.CM.PN ---
PATIENT IS INDEPENDENT WITH HER ADLs NO DME OR [facility] SERVICES IN THE HOME. FAMILY PROVIDES TRANSPORT WHERE NEEDED. IMM 05/27 SIGNED AND A COPY IS IN CHART. CASE MANAGEMENT FOLLOWING FOR ANY DISCHARGE NEEDS. DAUGHTER TO PROVIDE TRANSPORT HOME UPON DISCHARGE
[2020-05-27 15:47] VITALS: BP 120/64; PULSE 88; RESP 18; TEMP 36.2; O2SAT 99
[2020-05-27 18:10] VITALS: RESP 18
[2020-05-27 19:01] VITALS: BP 118/73; PULSE 79; RESP 19; TEMP 36.6; O2SAT 97
[2020-05-27] MEDS: Zolpidem Tartrate 5 MG TABLET PO (21:30)
[2020-05-27] MEDS: QUEtiapine Fumarate 200 MG TABLET PO (21:31)
[2020-05-27] MEDS: Enoxaparin Sodium 40 MG/0.4 ML SYRINGE SUBCUT (21:31)
[2020-05-28] VITALS: BP 116/88; PULSE 91; RESP 20; TEMP 36.2; O2SAT 97
[2020-05-28 00:49] VITALS: RESP 18
[2020-05-28] MEDS: Morphine Sulfate 2 MG/ML CARTRIDGE IVPUSH ×2 (00:49→04:49)
[2020-05-28] MEDS: 0.9 % Sodium Chloride Flush 3 ML SYRINGE IVFLUSH (00:49)
[2020-05-28] MEDS: Dextrose 5 % and 0.45 % NaCl 1,000 ML 100 ML IVCONT (02:42)
[2020-05-28 04:00] VITALS: BP 112/67; PULSE 84; RESP 18; TEMP 36.4
[2020-05-28 04:49] VITALS: RESP 20
[2020-05-28 05:40] VITALS: BMI 22.3
[2020-05-28 08:00] VITALS: BP 101/70; PULSE 78; RESP 20; TEMP 36.9; O2SAT 97
[2020-05-28] MEDS: clonazePAM 1 MG TABLET PO (08:50)
[2020-05-28] MEDS: Levothyroxine Sodium 125 MCG TABLET PO (08:50)
[2020-05-28] MEDS: Acetaminophen 325 MG TABLET 650 MG PO (08:51)
--- NOTE | 2020-05-28 10:22 | P.DS_ITS ---
DS: Providers Provider Date of admission: 05/26/20 16:45 Primary care physician: Mirella Tapia MD Consults: 05/27/20 09:53 Consult to Nephrology Routine Consulting Provider: Dariusz Augustin Reason for consultation: LAURYN Has provider been notified: No DS: Diagnosis Discharge Diagnosis (1) LAURYN (acute kidney injury): Status: Acute Problem details: Acute kidney injury likely from a pre-renal azotemia and renal hypoperfusion. NSAIDs block the prostaglandin effect on afferent arterial leading to afferent constriction and hypoperfusion of the glomerulus. This ontop of reduced PO intake and hypovolemia caused a significant pre-renal injury. Improving with Volume support. DS: Medications Discharge Medications Home Medications: Home Medications Medication Instructions Recorded Confirmed clonazepam 1 mg PO TID 05/26/20 05/26/20 levothyroxine [Synthroid] 125 mcg PO DAILY 05/26/20 05/26/20 quetiapine 200 mg PO BEDTIME 05/26/20 05/26/20 zolpidem 5 mg PO BEDTIME 05/26/20 05/26/20 Previous Rx's Medication Instructions Recorded polyethylene glycol 3350 [Miralax] 17 g PO DAILY #119 g 05/28/20 DS: Summary Hospital Course Hospital Course: history of presenting illness Chief Complaint: Multiple complaint--abdominal pain, dry skin 49 year female with history of thyroid cancer s/p total thyroidectomy 9 years ago and on replacement levothyroxine which stpped taking about six [address] of some natural supplement. She has not been feeling for weeks with symptoms ranging from feeling tired, weak and had notted her skin to be very dry and has been having generalized pain particular in her lower back and has been taking alot of Motrin at home for this. She recently was started back on synthroid about 5 days ago. She had lab work done today which showed TSH > 100 and Free T4 of 0.6. She also says that she had been recently treated for UTI and denies urinary symptoms. CT of abdomen and pelvis show no acute process. hospital course 1. LAURYN- it was felt that patient LAURYN is related to pre renal azotemia and renal hypoperfusion due to use of NSAIDs and decreased by mouth intake patient was treated with IV fluid creatinine trended down from 1.8 to 1.5 patient is clinically doing better drinking fluids she has been strongly advised to avoid NSAIDs aspirin, will repeat BMP next week recommend outpatient follow-up with PCP and Nephrology. 2. Back pain--no neuro symptoms, most likely musculoskeletal pain and due to constipation patient has been recommended to use Tylenol heart back and icy Hot recommended to abstain from NSAIDs. 3. Hypothyroidism--d/t non-compliance. No myxedema symptoms recommended to continue Synthroid and check TSH in 6 weeks. 4. Consitipation d/t hypothyroidism, patient moving bowels has been placed on MiraLax 5. history of Opioid contract failure no narcotics prescribed upon discharge. Time Spent with Patient Time attestation: Total time spent providing and/or coordinating discharge services: Physical Exam Vital Signs: Vital Signs: Last Vital Signs Temp 98.4 F 05/28/20 08:00 Pulse 78 05/28/20 08:00 Resp 20 05/28/20 08:00 BP 101/70 05/28/20 08:00 Pulse Ox 97 05/28/20 08:00 Body Mass Index 22.3 General resting comfortably Neck: Normal inspection. Neck supple. CVS: Normal heart rate and rhythm. Pulses normal. Respiratory: No respiratory distress. Breath sounds normal. Abdomen: Soft and nontender, bowel sounds are audible. Back: no CVA tenderness, no muscle spasm Skin: Skin warm and dry. Normal skin color, dry skin Extremities: Nonpitting bilateral mild lower extremity edema Neuro: Oriented X 3. No motor deficit. No sensory deficit. DS: Data Data Completed and Pending Labs on day of discharge: 05/26/20 14:48 ECG 12 lead EKG Stat EKG Documentation DIRECTED CT abdomen pelvis wo con Stat Morphine Sulfate 4 mg IVPUSH ONCE ONE ondansetron HCL [Zofran] 4 mg IVPUSH ONCE ONE 05/26/20 14:54 Acetaminophen [Tylenol] 650 mg PO ONCE ONE Lidocaine 4 % Patch [Salonpas 4 % Patch] 1 patch TRANSDERMA ONCE ONE diazePAM [Valium] 5 mg PO ONCE ONE 05/26/20 15:11 Complete Blood Count Auto Diff Stat 05/26/20 15:12 B Type Natriuretic Peptide Stat Basic Metabolic Panel Stat Creatine Kinase Total Stat Free T4 (Free Thyroxine) Stat Lipase Stat Liver Panel Stat Magnesium Stat Partial Thromboplastin Time Stat Thyroid Stimulating Hormone Stat 05/26/20 16:30 0.9 % Sodium Chloride [Ns] 1,000 ml IVCONT 999 mls/hr 05/26/20 16:42 Transfer Order Routine 05/26/20 17:10 COVID-19 ID NOW (Veronica) Stat 05/26/20 20:20 Dextrose 5 % and 0.45 % NaCl [D51/2Ns] 1,000 ml IVCONT 100 mls/hr 05/27/20 07:08 Basic Metabolic Panel DAILY@0600 Complete Blood Count Auto Diff DAILY@0600 Laboratory Last Values WBC 5.2 X10*3/uL (4.8-10.8) 05/27/20 07:08 RBC 2.97 X10*6/uL (4.20-5.50) L 05/27/20 07:08 Hgb 9.9 g/dl (12.0-16.0) L 05/27/20 07:08 Hct 30.6 % (37-47) L 05/27/20 07:08 MCV 103.0 fL (80-98) H 05/27/20 07:08 MCH 33.3 pg (27.0-33.0) H 05/27/20 07:08 MCHC 32.4 g/dl (31.0-35.0) 05/27/20 07:08 RDW 13.2 % (11.0-16.0) 05/27/20 07:08 Plt Count 265 X10*3/uL (160-400) 05/27/20 07:08 MPV 10.4 fL (9.4-12.3) 05/27/20 07:08 Immature Gran % (Auto) 0.6 % (0.0-0.4) H 05/27/20 07:08 Neut % (Auto) 54.0 % (45-73) 05/27/20 07:08 Lymph % (Auto) 37.9 % (20-40) 05/27/20 07:08 [place] % (Auto) 3.1 % (2-11) 05/27/20 07:08 Eos % (Auto) 3.4 % (0-4) 05/27/20 07:08 Baso % (Auto) 1.0 % (0-2) 05/27/20 07:08 Lymph # (Auto) 2.0 X10*3/uL (1.2-4.9) 05/27/20 07:08 [place] # (Auto) 0.2 X10*3/uL (0.1-1.2) 05/27/20 07:08 Eos # (Auto) 0.2 X10*3/uL (0.0-0.4) 05/27/20 07:08 Baso # (Auto) 0.1 X10*3/uL (0.0-0.2) 05/27/20 07:08 Abs Immat Gran (auto) 0.03 X10*3/uL (0.00-0.03) 05/27/20 07:08 Absolute Neuts (auto) 2.8 X10*3/uL (2.0-8.3) 05/27/20 07:08 Absolute Nucleated RBC 0.000 X10*3/uL (0.0-0.012) 05/27/20 07:08 Nucleated RBC % (auto) 0.0 /100WBC (0.0-0.2) 05/27/20 07:08 APTT 44.3 SEC (24.1-38.0) H 05/26/20 15:12 Sodium 140 mmol/L (135-145) 05/27/20 07:08 Potassium 4.1 mmol/l (3.3-5.1) 05/27/20 07:08 Chloride 106 mmol/L (96-108) 05/27/20 07:08 Carbon Dioxide 26 mmol/L (22-29) 05/27/20 07:08 Anion Gap 12 (12-20) 05/27/20 07:08 BUN 9 mg/dL (9-16) 05/27/20 07:08 Creatinine 1.49 mg/dL (0.5-1.4) H 05/27/20 07:08 Estim Creat Clear Calc 39.9 05/27/20 07:08 Estimated GFR 37 05/27/20 07:08 Random Glucose 96 mg/dL (60-115) 05/27/20 07:08 Calcium 7.4 mg/dL (8.4-10.2) L D 05/27/20 07:08 Magnesium 1.6 mg/dL (1.6-2.6) 05/26/20 15:12 Total Bilirubin 0.4 mg/dL (0.0-1.0) 05/26/20 15:12 Direct Bilirubin 0.2 mg/dL (0.0-0.5) 05/26/20 15:12 AST 31 U/L (5-31) 05/26/20 15:12 ALT 16 U/L (0-31) 05/26/20 15:12 Alkaline Phosphatase 111 U/L (39-117) D 05/26/20 15:12 Total Creatine Kinase 388 U/L (26-140) H 05/26/20 15:12 B-Natriuretic Peptide 94 pg/mL (<100) 05/26/20 15:12 Total Protein 7.1 g/dL (6.5-8.0) D 05/26/20 15:12 Albumin 4.1 g/dL (3.5-5.0) 05/26/20 15:12 Lipase 16 U/L (8-78) 05/26/20 15:12 TSH > 100.00 uIU/mL (0.32-4.0) H 05/26/20 15:12 Free T4 0.60 ng/dL (0.71-1.85) L 05/26/20 15:12 Urine Color YELLOW 05/26/20 15:12 Urine Appearance HAZY 05/26/20 15:12 Urine pH 7.5 (5.0-8.0) 05/26/20 15:12 Ur Specific [place] 1.010 (1.005-1.025) 05/26/20 15:12 Urine Protein NEG MG/DL (NEG-TRACE) 05/26/20 15:12 Urine Glucose (UA) NEG MG/DL (NEG) 05/26/20 15:12 Urine Ketones NEG MG/DL (NEG) 05/26/20 15:12 Urine Blood TRACE (NEG) 05/26/20 15:12 Urine Nitrite NEG (NEG) 05/26/20 15:12 Ur Leukocyte Esterase NEG (NEG) 05/26/20 15:12 Urine RBC 1-4 /HPF (0) 05/26/20 15:12 Urine WBC 1-4 /HPF (0-4) 05/26/20 15:12 Ur Squamous Epith Cells 2+ /LPF 05/26/20 15:12 Urine Bacteria 1+ /LPF 05/26/20 15:12 COVID-19 (CARLOS) Negative (Negative) 05/26/20 17:10 COVID-19 Clin Com See Note 05/26/20 17:10 Discharge Plan Discharge Patient Disposition: Home, Self-Care Referrals: Mirella Tapia MD [Primary Care Provider] - Discharge Medications: New polyethylene glycol 3350 [Miralax] 17 gram/dose powder 17 g PO DAILY Qty: 119 RF: 0 Continued quetiapine 200 mg Tablet 200 mg PO BEDTIME RF: 0 clonazepam 1 mg Tablet 1 mg PO TID RF: 0 levothyroxine [Synthroid] 125 mcg Tablet 125 mcg PO DAILY RF: 0 zolpidem 5 mg Tablet 5 mg PO BEDTIME RF: 0 Discharge Orders: Discharge Order (Routine); Ordered 05/28/20 Ordered By: Marino Danielle Diet: regular diet Activity on Discharge: As tolerated Other Ambulatory Orders: Basic Metabolic Panel (Routine) Timeframe: 3 Days Facility: [facility] - Location: Laboratory Ordered By: Marino Danielle Visit Report Forms: Patient Portal Discharge page Care Plan Goals: avoid using aspirin or NSAIDs, blood work ordered for next week. Health Concerns: drink plenty of fluids, increase activity and take high-fiber diet, to not miss any dosage of Synthroid Plan of Treatment: outpatient follow-up with Nephrology Dr. Augustin and primary care physician in 1 week.
--- NOTE | 2020-05-28 10:31 | MHC.CM.PN ---
PATIENT IS DISCHARGED HOME WITH NO NEED FOR SERVICES. RN AWARE OF PLAN.
[2020-05-28 11:32] VITALS: BP 114/70; PULSE 80; RESP 20; TEMP 36.6; O2SAT 95
== END 2020-05-28 12:25 | disposition home or self-care (01) | DRG 684 ==
LOC: HO.ED 16:31 → HO.S3 17:31
PROVIDERS: Admitting Provider Internal Medicine; Emergency Provider Emergency Medicine; PCP Internal Medicine; Visit Provider Hospitalist
DX: N17.9 Acute kidney failure, unspecified (principal); F41.9 Anxiety disorder, unspecified; T38.1X6A Underdosing of thyroid hormones and substitutes, initial encounter; E86.0 Dehydration; M54.5 Low back pain; Z91.128 Patient's intentional underdosing of medication regimen for other reason; Y92.9 Unspecified place or not applicable; Z20.828 Contact with and (suspected) exposure to other viral communicable diseases; K59.00 Constipation, unspecified; E89.0 Postprocedural hypothyroidism; F17.210 Nicotine dependence, cigarettes, uncomplicated; Z71.6 Tobacco abuse counseling; Z79.890 Hormone replacement therapy; Z79.899 Other long term (current) drug therapy
CPT/HCPCS: 36415; 74176; 80048; 80076; 81001; 82550; 83690; 83735; 83880; 84439; 84443; 85025; 85730; 87635; 93005; 96361; 96374; 96375; 99285; J1650; J2270; J2405

== ENCOUNTER 2020-12-20 09:42 | Outpatient (REF) | payer MEDICARE, MEDICAID, SELFPAY ==
[2020-12-20 11:23] LABS: Alanine Aminotransferase 13 U/L (0-31); Albumin Level 3.3 g/dL (3.5-5.0); Alkaline Phosphatase 100 U/L (39-117); Anion Gap 13 (12-20); Aspartate Amino Transferase 26 U/L (5-31); Bilirubin Total < 0.2 mg/dL (0.0-1.0); Blood Urea Nitrogen 8 mg/dL (9-16); Calcium 7.9 mg/dL (8.4-10.2); Carbon Dioxide 23 mmol/L (22-29); Chloride 102 mmol/L (96-108); Estimated Glomerular Filt Rate 46; Glucose Random 71 mg/dL (60-115); Potassium 4.1 mmol/L (3.3-5.1); Sodium 134 mmol/L (135-145); Total Protein 5.3 g/dL (6.5-8.0)
[2020-12-20 15:29] LABS: Thyroid Stimulating Hormone > 100.00 uIU/mL (0.32-4.0)
== END 2020-12-20 09:43 | disposition home or self-care (01) ==
LOC: HO.LAB 09:42
PROVIDERS: PCP Internal Medicine; Visit Provider Internal Medicine
DX: E89.0 Postprocedural hypothyroidism (principal); N30.00 Acute cystitis without hematuria; N95.1 Menopausal and female climacteric states; Z85.850 Personal history of malignant neoplasm of thyroid
CPT/HCPCS: 36415; 80053; 84443

== ENCOUNTER 2022-10-16 17:23 | Outpatient (REF) | payer MEDICARE, SELFPAY ==
[2022-10-16 17:34] LABS: MANUAL DIFF FLAG NO
[2022-10-16 17:48] LABS: Basophils Percent Auto 0.7 % (0-2); Eosinophils Absolute Auto 0.1 X10*3/uL (0.0-0.4); Hematocrit 33.8 % (37.0-47.0); Hemoglobin 11.5 g/dl (12.0-16.0); Imm Gran Abs Auto 0.01 X10*3/uL (0.00-0.03); Imm Gran Pct Auto 0.2 % (0.0-0.4); Lymphocytes Absolute Auto 2.2 X10*3/uL (1.2-4.9); Mean Corpuscular Hemoglobin 35.3 pg (27.0-33.0); Mean Corpuscular Volume 103.7 fL (80.0-98.0); Monocytes Absolute Auto 0.3 X10*3/uL (0.1-1.2); Monocytes Percent Auto 4.8 % (2-11); Neutrophils Absolute Auto 3.2 x10*3/uL (2.0-8.3); Neutrophils Percent Auto 54.3 % (45-73); Platelet Count 242 X10*3/uL (160-400); Red Blood Count 3.26 X10*6/uL (4.20-5.50); Red Cell Distribution Width 13.6 % (11.0-16.0); White Blood Count 5.9 X10*3/uL (4.8-10.8)
[2022-10-16 18:07] LABS: Alanine Aminotransferase 17 U/L (0-31); Albumin Level 3.5 g/dL (3.5-5.0); Alkaline Phosphatase 116 U/L (39-117); Anion Gap 12 (12-20); Aspartate Amino Transferase 35 U/L (5-31); Bilirubin Total 0.2 mg/dL (0.0-1.0); Blood Urea Nitrogen 5 mg/dL (9-16); Calcium 8.3 mg/dL (8.4-10.2); Carbon Dioxide 28 mmol/L (22-29); Chloride 102 mmol/L (96-108); Cholesterol 210 mg/dL; Estimated Glomerular Filt Rate 38; Glucose Random 86 mg/dL (60-115); HDL Cholesterol 93 mg/dL; LDL Cholesterol Calculated 75 mg/dl; Potassium 4.1 mmol/L (3.3-5.1); Sodium 138 mmol/L (135-145); Total Protein 5.7 g/dL (6.5-8.0); Triglycerides 210 mg/dL
[2022-10-16 18:22] LABS: Thyroid Stimulating Hormone > 100.00 uIU/mL (0.32-4.0)
[2022-10-19 05:04] LABS: Triiodothyronine T3 Free 0.9 pg/mL (2.3-4.2)
== END 2022-10-16 17:24 | disposition home or self-care (01) ==
LOC: HO.LAB 17:23
PROVIDERS: PCP Internal Medicine; Visit Provider Internal Medicine
DX: Z00.00 Encounter for general adult medical examination without abnormal findings (principal); E89.0 Postprocedural hypothyroidism; N95.0 Postmenopausal bleeding; N95.1 Menopausal and female climacteric states
CPT/HCPCS: 36415; 80053; 80061; 84443; 84481; 85025

== ENCOUNTER 2023-01-04 10:08 | Outpatient (REF) | payer MEDICARE, SELFPAY ==
[2023-01-04 11:12] LABS: Alanine Aminotransferase 8 U/L (0-31); Albumin Level 3.5 g/dL (3.5-5.0); Alkaline Phosphatase 82 U/L (39-117); Anion Gap 13 (12-20); Aspartate Amino Transferase 17 U/L (5-31); Bilirubin Total 0.5 mg/dL (0.0-1.0); Blood Urea Nitrogen 7 mg/dL (9-16); Calcium 8.4 mg/dL (8.4-10.2); Carbon Dioxide 21 mmol/L (22-29); Chloride 107 mmol/L (96-108); Estimated Glomerular Filt Rate 48; Glucose Random 88 mg/dL (60-115); Potassium 3.4 mmol/L (3.3-5.1); Sodium 138 mmol/L (135-145)
[2023-01-04 11:29] LABS: Thyroid Stimulating Hormone 62.62 uIU/mL (0.32-4.0)
== END 2023-01-04 10:09 | disposition home or self-care (01) ==
LOC: HO.LAB 10:08
PROVIDERS: PCP Internal Medicine; Visit Provider Internal Medicine
DX: E89.0 Postprocedural hypothyroidism (principal); N18.9 Chronic kidney disease, unspecified; N95.1 Menopausal and female climacteric states; R19.7 Diarrhea, unspecified; Z85.850 Personal history of malignant neoplasm of thyroid
CPT/HCPCS: 36415; 80053; 84443

== ENCOUNTER 2023-04-05 10:49 | Outpatient (REF) | payer MEDICARE, SELFPAY ==
[2023-04-05 14:33] LABS: Thyroid Stimulating Hormone 31.45 uIU/mL (0.32-4.0)
== END 2023-04-05 10:50 | disposition home or self-care (01) ==
LOC: HO.HMGCLDS 10:49
PROVIDERS: PCP Internal Medicine; Visit Provider Internal Medicine
DX: E89.0 Postprocedural hypothyroidism (principal); J02.9 Acute pharyngitis, unspecified; N95.1 Menopausal and female climacteric states
CPT/HCPCS: 36415; 84443

== ENCOUNTER 2023-11-15 13:01 | Outpatient (REF) | payer MEDICARE, SELFPAY ==
[2023-11-15 15:53] LABS: Thyroid Stimulating Hormone 1.92 uIU/mL (0.32-4.0)
== END 2023-11-15 13:02 | disposition home or self-care (01) ==
LOC: HO.HMGCLDS 13:01
PROVIDERS: PCP Internal Medicine; Visit Provider Internal Medicine
DX: E89.0 Postprocedural hypothyroidism (principal); Z68.21 Body mass index [BMI] 21.0-21.9, adult
CPT/HCPCS: 36415; 84443

== ENCOUNTER 2024-06-26 13:14 | Outpatient (REF) | payer MEDICARE, SELFPAY ==
--- OUTSIDE RECORDS SUMMARY | 2024-06-26 13:16 | XMS_ITS ---
Author Organization [facility] Address [address] [place] [address] Care Team Providers Care Analysis Analyst Name Role Phone Mirella Tapia Primary Care Provider Unavailab Parish Ye Jr Unavailable [phone] REASON FOR VISIT Patient presents today for SEVERE DIARRHEA MEDICATIONS Medication SIG (Take, Route, Frequency, Duration) Notes Start Date End Date Status QUEtiapine Fumarate 200 MG TAKE 1 TABLET ONCE A DAY ORALLY Oral for 030 Active Ibuprofen 600 MG TAKE 1 TABLET ONCE A DAY ORALLY Oral for 010 Active oxyCODONE-Acetaminophen 5-325 MG TAKE 1 TABLET ONCE A DAY ORALLY Oral for 030 Not-Taking SEROquel XR 150 MG TAKE 1 TABLET ONCE A DAY ORALLY Oral for 030 Active Dicyclomine HCl 20 MG 1 tablet Orally 2- 4 times a day for 30 day(s) 10/23/2012 Active Methadone HCl 68mg A ctive KlonoPIN 1mg Active Colyte with Flavor Packs 240 GM As directed Orally Over the specified time. for 1 day(s) 12/22/2013 Active Anusol-HC 2.5 % 1 application to affected area Rectal Twice a day for 30 day(s) 12/22/2013 Active Levoxyl .2mg Active Mirtazapine 15 MG TAKE 1 TABLET ONCE A DAY ORALLY Oral for 030 Not-Taking clonazePAM 1 MG TAKE 1 TABLET ONCE A DAY ORALLY Oral for 030 Not-Taking Encounters Encounter Location Date Provider Diagnosis [facility] [address] [place] [address] 02/10/2023 Parish Forrest Jr PLAN OF TREATMENT No Information
--- OUTSIDE RECORDS SUMMARY | 2024-06-26 13:16 | XMS_ITS ---
Author Organization [facility] Address [address] [place] [address] Care Team Providers Care Gusset Edger Name Role Phone Mirella Tapia Primary Care Provider Unavailab Parish Ye Jr REASON FOR VISIT Pt no show Encounters Encounter Location Date Provider Diagnosis [facility] [address] [place] [id number] 02/10/2023 Parish Forrest Jr PLAN OF TREATMENT No Information
--- OUTSIDE RECORDS SUMMARY | 2024-06-26 13:17 | XMS_ITS | Patient Health Record ---
Author Organization [facility] Address [address] [place] [address] Care Team Providers Care Laborer [employer] Maintenance Name Role Phone Mirella Tapia Primary Care Provider UnavailParish Hall Jr Unavailable REASON FOR REFERRAL No Information MEDICATIONS Medication SIG (Take, Route, Frequency, Duration) Notes Start Date End Date Status Methadone HCl 68mg A ctive Mirtazapine 15 MG TAKE 1 TABLET ONCE A DAY ORALLY Oral for 030 Not-Taking clonazePAM 1 MG TAKE 1 TABLET ONCE A DAY ORALLY Oral for 030 Not-Taking KlonoPIN 1mg Active Colyte with Flavor Packs 240 GM As directed Orally Over the specified time. for 1 day(s) 12/22/2013 Active Anusol-HC 2.5 % 1 application to affected area Rectal Twice a day for 30 day(s) 12/22/2013 Active QUEtiapine Fumarate 200 MG TAKE 1 TABLET [...] a day for 30 day(s) 10/23/2012 Active Levoxyl .2mg Active SOCIAL HISTORY Sex Assigned At : Social History Observation Description Sex Assigned At Unknown PROBLEMS Problem Type ICD Code Onset Dates Problem Status W/U Status Risk SNOMED Code Notes Problem Irritable bowel syndrome (564.1) Active confirmed Irritable bowel syndrome (39153098) Problem Esophageal reflux (530.81) Active confirmed 015463309 Problem Abdominal pain (789.00) Active confirmed 23070264 Problem Enteritis (558.9) Active confirmed 32573822 Problem Diarrhea (787.91) Active confirmed 19580263 Problem Hemorrhoids (455.6) Active confirmed 77914747 PLAN OF TREATMENT Future Test Test Name Order Date UPPER GI ENDOSCOPY 12/22/2013 COLONOSCOPY 12/22/2013 Insurance Providers Payer Name Payer Address Payer Phone Subscriber Number Group Number Insured Name Patient Relationship to Insured Coverage Start Date Coverage End Date [facility] [address] [address] [place] [address] [id number] KVNG HODGSON AM Self - patient is the insured MED[employer] [facility] [address] [place] [address] [id number] KVNG HODGSON AM Self - patient is the insured MEDICAL (GENERAL) HISTORY Medical History History ICD Code egd 10- abdominal pain bloating chronic constipation Denies [place],DM,CVA,Lung disease,renal dise ase Surgical History Surgery Date(Month/Year) cholecystectomy thyroidectomy small bowel obstruction, ile ocolectomy with ileocolonic anastomosis, pathology showing some chronic focally active enteritis and reactive hyperplasia of lymph nodes 2008
[2024-06-26 15:20] LABS: MANUAL DIFF FLAG NO
[2024-06-26 15:23] LABS: Basophils Percent Auto 0.5 % (0-2); Eosinophils Absolute Auto 0.1 X10*3/uL (0.0-0.4); Eosinophils Percent Auto 1.8 % (0-4); Hematocrit 32.5 % (37.0-47.0); Hemoglobin 10.6 g/dl (12.0-16.0); Imm Gran Abs Auto 0.02 X10*3/uL (0.00-0.03); Imm Gran Pct Auto 0.4 % (0.0-0.4); Lymphocytes Absolute Auto 1.3 X10*3/uL (1.2-4.9); Mean Corpuscular HGB Conc 32.6 g/dl (31.0-35.0); Mean Corpuscular Hemoglobin 31.2 pg (27.0-33.0); Mean Corpuscular Volume 95.6 fL (80.0-98.0); Mean Platelet Volume 11.8 fL (9.4-12.3); Monocytes Absolute Auto 0.3 X10*3/uL (0.1-1.2); Monocytes Percent Auto 5.3 % (2-11); Neutrophils Absolute Auto 3.7 x10*3/uL (2.0-8.3); Platelet Count 232 X10*3/uL (160-400); White Blood Count 5.5 X10*3/uL (4.8-10.8)
[2024-06-26 15:42] LABS: Alanine Aminotransferase 15 U/L (0-31); Albumin Level 3.3 g/dL (3.5-5.0); Alkaline Phosphatase 86 U/L (39-117); Anion Gap 12 (12-20); Aspartate Amino Transferase 22 U/L (5-31); Bilirubin Total 0.2 mg/dL (0.0-1.0); Blood Urea Nitrogen 8 mg/dL (9-16); Carbon Dioxide 30 mmol/L (22-29); Chloride 104 mmol/L (96-108); Estimated Glomerular Filt Rate 59; Glucose Random 91 mg/dL (60-115); Potassium 4.3 mmol/L (3.3-5.1); Sodium 142 mmol/L (135-145); Total Protein 5.7 g/dL (6.5-8.0)
[2024-06-26 15:57] LABS: Ferritin 117 ng/mL (10-250)
[2024-06-26 16:00] LABS: Vitamin B12 246 pg/mL (200-900)
== END 2024-06-26 13:15 | disposition home or self-care (01) ==
LOC: HO.HMGCLDS 13:14
PROVIDERS: PCP Internal Medicine; Visit Provider Internal Medicine
DX: Z00.00 Encounter for general adult medical examination without abnormal findings (principal); E89.0 Postprocedural hypothyroidism; R53.83 Other fatigue; Z85.850 Personal history of malignant neoplasm of thyroid
CPT/HCPCS: 36415; 80053; 82607; 82728; 85025